=== PATIENT | female | born 1975 | race Caucasian/White ===

== ENCOUNTER 2018-03-29 08:48 | Outpatient (CLI) | payer MEDICAID, SELFPAY ==
--- NOTE | 2018-03-29 08:45 | DI.REPORT_ITS ---
SYMPTOMS/DIAGNOSIS: F/U LEFT BUNION; F/U LEFT TIBIAL RESECTION IN 1998 WITH NEW PAIN LEFT FOOT: Three views. There are postsurgical changes of a prior bunionectomy. There is a persistent hallux valgus deformity. No acute fracture or dislocation is seen. Mild degenerative changes are seen at the 1st metatarsophalangeal joint. The bones are normally mineralized. The soft tissues are unremarkable. Note is made of an orthopedic screw in the distal tibia. LEFT TIB/FIB: Three views. No priors. There are three screws seen within the mid left tibia. There appears to be a healing fracture present. There is a lucency which persists at the anterior aspect of the middle tibia, suggesting incomplete healing. No other fractures or dislocations are seen. Please correlate with prior examinations if available.
== END 2018-03-29 08:49 ==
PROVIDERS: PCP Naturopath; Visit Provider Student in an Organized Health Care Education/Training Program
DX: M89.8X6 Other specified disorders of bone, lower leg (principal); M20.12 Hallux valgus (acquired), left foot; M19.072 Primary osteoarthritis, left ankle and foot; Z47.89 Encounter for other orthopedic aftercare
CPT/HCPCS: 73590; 73630

== ENCOUNTER 2018-04-02 01:22 | Outpatient (CLI) | payer MEDICAID, SELFPAY ==
--- NOTE | 2018-04-02 10:12 | DI.NM_ITS ---
SYMPTOMS/DIAGNOSIS: LEFT TIBIAL PAIN AND PREVIOUS TIBIA RESECTION, M89.8X6 THREE-PHASE BONE SCAN: A three-phase bone scan was performed with intravenous infusion of 25.6 mCi of technetium 99 labelled methylene diphosphonate. Immediate and slow-phase images show slightly increased uptake in the mid left lower leg. Delayed images show markedly increased uptake in the left mid tibia at the site of suspected fracture identified on recent examination. In the appropriate clinical setting, this may represent a healing acute fracture versus stress fracture. Minimally increased uptake also seen associated with the two inferior -most screws, the apparent fracture is associated with the superior-most of the three screws. Whole body imaging shows no other significant area of increased uptake. CONCLUSION: Findings consistent with healing subacute fracture or stress fracture of the anterior mid tibia as described above.
== END 2018-04-02 01:42 ==
PROVIDERS: PCP Naturopath; Visit Provider Student in an Organized Health Care Education/Training Program
DX: M79.662 Pain in left lower leg (principal); M89.8X6 Other specified disorders of bone, lower leg
CPT/HCPCS: 78315

== ENCOUNTER 2018-04-10 05:58 | Day surgery (SDC) | payer MEDICAID, SELFPAY ==
[2018-04-10 06:07] VITALS: BP 124/67; PULSE 72; RESP 20; TEMP 36.8; O2SAT 98
--- NOTE | 2018-04-10 06:27 | W.PREOPHP ---
Date of service: 04/10/18 Time of Service: 06:27 Assessment and Plan (1) Stress fracture, left tibia, sequela: Current visit: Yes Status: Acute (2) Painful orthopaedic hardware: Current visit: Yes Status: Acute Given the retained hardware preventing MRI I recommend that we proceed with hardware removal. I reviewed the risks to include bleeding, infection, pain, stiffness, fracture, need for repeat procedures, damage to nerves and vessels. Despite these risks she elected to proceed. History of Present Illness Chief Complaint: Left Tibia Pain Narrative: Yamileth is a 42yo with left leg pain. She has a complex history with previous tibial pain and a prominence which ultimately underwent resection and allograft reconstruction. She has had increasing pain and appears to have a stress fracture at minimum. Bone scan did show activity of the area. MRI is desired to rule out any neoplastic process but since the screws are in place and will distort the MRI, the screws are going to be removed first. She has been able to ambulate without assistance although with some pain. She denies fever or chills. No chest pain or shortness of breath. No numbness or tingling. PFSH Social History Smoking/Tobacco Use Status: Never Meds Home Medications Medication Instructions Recorded Confirmed Type multivitamin [Multi-Vitamin Daily] 1 ea PO DAILY 03/29/18 04/10/18 History omega-3 fatty acids-fish oil [Fish 1 ea PO DAILY 03/29/18 04/10/18 History Oil 1,000 Mg Capsule] Allergies Allergy/AdvReac Type Severity Reaction Status Date / Time No Known Allergies Allergy Verified 04/10/18 06:06 Exam Narrative Exam Narrative: Previous incisions seen about the lleft tibia. No signs of infection. Pain to percussion and palpation of the midtibia. SILT DP/SP/Tib. Foot WWP with palpable DP/PT pulses. Const General: cooperative, healthy appearing and comfortable Orientation: alert, awake and oriented x3 Resp Effort & Inspection: normal respiratory effort Auscultation: clear to auscultation bilaterally Cardio Rate: regular rate Rhythm: regular rhythm
[2018-04-10] MEDS: Lactated Ringers 1,000 ML 80 ML IV (06:39)
--- NOTE | 2018-04-10 06:59 | DI.RAD_ITS ---
SYMPTOM/DIAGNOSIS: HARDWARE REMOVAL C-ARM LEFT ANKLE: Fluoroscopy Time: 19.5 seconds, 0.61mgy Fluoroscopy was utilized by Dr. Day during the removal of three screws from the distal left tibia. Please refer to the procedure report for complete details.
[2018-04-10] MEDS: Bupivacaine 0.5% Pres-Free 30 ML VIAL (07:20)
--- NOTE | 2018-04-10 07:50 | W.PM.DSUDISC ---
Discharge Plan Disposition Patient Disposition: HOME Condition: Good Discharge Details Attending Provider: Cortez Day Primary Care Provider: MARY BETH AMANDA Home Meds and New Rx's Prescriptions: New hydrocodone-acetaminophen 5-325 mg tablet 1 tab PO Q6H PRN (Reason: pain) Qty: 8 RF: 0 ibuprofen 600 mg tablet 600 mg PO TID PRN (Reason: pain) Qty: 60 RF: 0 acetaminophen 500 mg capsule 500 mg PO Q6H PRN (Reason: pain) Qty: 60 RF: 1 Continue multivitamin [Daily Multi-Vitamin] 1 EACH tablet 1 ea PO DAILY RF: 0 omega-3 fatty acids-fish oil [Fish Oil] 1 EACH capsule 1 ea PO DAILY RF: 0 Discharge Instructions Additional Instructions: Activity: You should use crutches at all times for weight-bearing. You should be partial weight-bearing. You may move your knee, foot, and toes as tolerated. Dressings: You should keep the dressing on for at least 3 days. You may then remove it and replace with bandaids. It may get wet after 3 days. Medications: - You should take Tylenol and Ibuprofen for baseline pain control. - You may apply ice for pain control - You have Hydrocodone for breakthrough pain Follow-up: 10 days Equipment/Supplies: Partial Weight Bearing Crutches Activity:: Elevate Remove Dressings/Wound Care:: 72 hours Shower/Bathe:: 72 hours Discharge Orders Discharge Orders: Discharge Order (Routine); Ordered 04/10/18 Ordered By: Cortez Day DS: Diagnosis Discharge Diagnosis (1) Stress fracture, left tibia, sequela: Status: Acute (2) Painful orthopaedic hardware: Status: Acute
[2018-04-10 08:30] VITALS: BP 124/67; PULSE 72; RESP 20; TEMP 36.8; O2SAT 98
[2018-04-10] MEDS: HYDROcodone 5/Acetaminophen 325 TAB PO (08:34)
--- NOTE | 2018-04-10 16:18 | W.PM.OP ---
Date of service: 04/10/18 Time of Service: 07:18 Operative Note Date of procedure: 04/10/18 Pre-op diagnosis: Retained orthopedic hardware, left tibia Post-op diagnosis: same Procedure: Removal of hardware, left tibia Surgeon: Cortez Day Anesthesia: MAC Estimated blood loss (mL): 5 Pathology: none sent Tourniquet time (min): 0 Complications: None Patient was transported to: same day Patient's condition: stable Indications: Simi is a 42-year-old who had a previous surgery to the left leg for bone abnormality with allograft reconstruction. She has since developed a stress fracture at the most superior screw. Given the history and some irregularity of the medullary canal and MRI is indicated. Given the hardware in this location I recommended that we remove the 3 screws to allow for a better MRI. I reviewed the risk of the procedure to include fracture, pain, stiffness, damage to nerves, muscles, and tendons. Despite these risks, she elected to proceed Findings: 3 4.5 mm cortical screws were removed without difficulty. Procedure Description: Simi was greeted in the preoperative holding area. Her identity was confirmed the correct site was identified and marked. The consent was with the patient and signed. The history and physical was updated. She was taken back to the operating room placed in supine position. All bony problems well-padded. A bump was placed underneath the left hip. Prophylactic antibiotics in the form of cefazolin were given. Prior to starting the case the approximate location of the screws were marked on the skin after identifying the location with C arm. The left leg was then prepped with ChloraPrep and draped in a standard fashion. A timeout was performed for safe surgery. Starting with the superiormost screw, 1 cm incision was made within the previous incision site. Blunt dissection was carried down to the level of the lateral tibia. Once the lateral tibia was encountered the screw head was easily palpable. Hemostat was used to clear passed down to the screw and screwdriver was inserted until it sat nicely into the head of the screw. Correct angulation and positioning of the screwdriver was confirmed with fluoroscopy. Screw was then removed without difficulty. The same step was repeated for all 3 screws making separate incisions for each 1. All 3 screws were removed without difficulty. There is no excessive bleeding. Curettes were used to lightly debride the screw paths. All bone palpated with the curette seemed to be of appropriate density and appearance. The wounds were then closed with a 4-0 nylon. The skin, soft tissues, and periosteum were injected with 0.5% bupivacaine. The wound was dressed with Xeroform, 4 x 4's, Kerlix and Sanket wrap. She was awakened from her MAC anesthetic without any notable complications. She was transferred back to the same-day surgery area in stable condition.
== END 2018-04-10 09:17 | disposition home or self-care (01) ==
PROVIDERS: PCP Naturopath; Visit Provider Student in an Organized Health Care Education/Training Program
PROC: (CPT 20680; principal; 2018-04-10 07:15)
DX: Z47.2 Encounter for removal of internal fixation device (principal)
CPT/HCPCS: 20680; 81025; NC; 73610; E0114; J0131; J0690; J1100; J1200; J1885; J2250; J2405; J3010

== ENCOUNTER 2024-04-29 10:24 | Outpatient (CLI) | payer SELFPAY ==
[2024-05-03 13:39] LABS: Testosterone, Free 0.32 ng/dL (<0.13-0.95); Testosterone, Total 30 ng/dL (8-60)
== END 2024-04-29 10:25 | disposition home or self-care (01) ==
LOC: LBO 10:25
PROVIDERS: PCP Naturopath; Visit Provider Advanced Practice Midwife
DX: N95.9 Unspecified menopausal and perimenopausal disorder (principal)
CPT/HCPCS: 36415; 84402; 84403